=== PATIENT | male | born 1955 | race African-American/Black ===

== ENCOUNTER 2024-09-01 02:22 | Emergency (ER) | payer MEDICARE, MEDICAID ==
[~2024-09-01] VITALS: Ht 182.9 cm; Wt 82.0 kg
[2024-09-01 02:36] VITALS: O2SAT 98
[2024-09-01 03:03] LABS: BASOPHILS % 0.5 % (0.0-2.0); EOSINOPHILS % 2.3 % (0.0-5.0); HEMATOCRIT. 40.6 % (42.0-52.0); HEMOGLOBIN. 13.3 g/dL (14.0-18.0); LYMPHOCYTES % 39.2 % (20.0-50.0); MEAN CORPUSCULAR HEMOGLOBIN 27.5 pg (28.0-32.0); MEAN CORPUSCULAR HGB CONC 32.8 g/dL (31.0-37.0); MEAN CORPUSCULAR VOLUME 83.8 fL (80.0-94.0); MEAN PLATELET VOLUME 7.5 fl (7.4-10.4); MONOCYTES % 9.5 % (2.0-8.0); NEUTROPHILS % 48.5 % (40.0-76.0); PLATELET 285 x1000/uL (130-400); RED BLOOD CELL COUNT 4.84 mill/uL (4.7-6.1); RED CELL DISTRIBUTION WIDTH 14.2 % (11.6-14.6); WHITE BLOOD COUNT 7.2 x1000/uL (4.5-11.0)
[2024-09-01 03:10] LABS: CHLORIDE 108 mEq/L (98-107); POTASSIUM 3.8 mEq/L (3.5-5.1); SODIUM 140 mEq/L (136-145)
[2024-09-01 03:11] LABS: CALCIUM 9.1 mg/dL (8.7-10.4); CARBON DIOXIDE 26 mEq/L (21-32)
[2024-09-01 03:13] LABS: PROTHROMBIN TIME 10.9 sec (9.6-11.0)
[2024-09-01 03:16] LABS: GLUCOSE 111 mg/dL (70-105); UREA NITROGEN BLOOD 16 mg/dL (9-23)
[2024-09-01 03:18] LABS: ALANINE AMINOTRANSFERASE 24 IU/L (10-49); ALBUMIN 4.3 g/dL (3.2-4.8); ASPARTATE AMINOTRANSFERASE 27 IU/L (<34); BILIRUBIN TOTAL 0.3 mg/dL (0.1-1.0); PROTEIN TOTAL 7.1 g/dL (6.0-8.3)
[2024-09-01 04:00] LABS: BILIRUBIN DIRECT < 0.1 mg/dL (<=3.0)
[2024-09-01] MEDS: MAGNESIUM/ALUMINUM HYDROXIDE/SIMETHICONE 30ML UDC PO STA (04:07)
[2024-09-01] MEDS: ACETAMINOPHEN 325MG TABLET PO ONE (04:07)
[2024-09-01] MEDS ORDERED: MAG355OR21 MT (04:16)
[2024-09-01] MEDS ORDERED: ACETAMINOPHEN 325MG TABLET PO NR (04:30)
[2024-09-01 05:00] VITALS: BP 129/73; PULSE 64; RESP 14; TEMP 36.33624; O2SAT 99
== END 2024-09-01 05:25 | disposition home or self-care (01) ==
LOC: ER 02:22
DX: R11.0 Nausea (principal); E11.9 Type 2 diabetes mellitus without complications; I10 Essential (primary) hypertension; Z00.00 Encounter for general adult medical examination without abnormal findings
CPT/HCPCS: 36415; 80048; 80076; 85025; 99283